=== PATIENT | female | born 1945 | race Caucasian/White ===

== ENCOUNTER 2020-12-06 09:37 | Outpatient (REF) | payer OTHER, SELFPAY ==
--- NOTE | ~2020-12-06 | MM_ITS ---
EXAMINATION: MM DIAGNOSTIC DIGITAL BREAST TOMOSYNTHESIS, BILATERAL US DIAGNOSTIC ULTRASOUND BREAST, LEFT CLINICAL INFORMATION: Due for yearly exam. Patient notes palpable area and itching posterior upper outer left breast. No known family history breast cancer. The lifetime risk of breast cancer based on the Tyrer-Cuzick Model is 2%. COMPARISON: Mammography: 07/31/2019, 06/05/2018, 05/07/2017 TECHNIQUE: Digital breast tomosynthesis is performed in both the craniocaudal and mediolateral oblique views along with computer-aided detection (CAD). Synthesized 2D images are generated from the tomosynthesis. Ultrasound left breast is targeted to the area of clinical concern 12:00 through 4:00 position. Grayscale imaging and color Doppler are performed without and with harmonics. Patient is able to point to general vicinity of concern at time of imaging although no focal palpable mass is felt by patient at time of imaging. FINDINGS: The breasts are almost entirely fatty (ACR BI-RADS breast composition Category a). Background stromal markings are stable. There is no interval mass or architectural abnormality or abnormal calcifications. No developing density. No skin thickening or coarsening of the Nestor's ligaments. The axilla and skin contours are unremarkable. Ultrasound demonstrates no cystic or solid mass, architectural abnormality, or focal duct ectasia. No skin thickening or edema tracking in soft tissue planes. Results are discussed with the patient at time of visit. MM/MM tomosynthesis diagnostic BI IMPRESSION: 1. No mammographic evidence of malignancy or inflammatory changes. 2. Unremarkable targeted left breast ultrasound.. ASSESSMENT: BI-RADS 1: Negative RECOMMENDATION: 1. Patient should be managed based on the clinical impression. Decision to proceed with biopsy should be based on clinical grounds and degree of clinical concern. 2. Otherwise, routine annual screening mammography. This patient's information was entered into a reminder system with a target due date for their next mammogram.
--- NOTE | ~2020-12-06 | US_ITS ---
Diagnostic left breast ultrasound is described in a single combined report along with the diagnostic bilateral digital breast tomosynthesis under accession # [id number].
== END 2020-12-06 09:38 | disposition home or self-care (01) ==
LOC: HO.MAMMO 09:37
PROVIDERS: PCP Internal Medicine; Visit Provider Internal Medicine
DX: N63.21 Unspecified lump in the left breast, upper outer quadrant (principal)
CPT/HCPCS: 76642; 77062; 77066

== ENCOUNTER 2021-12-11 15:58 | Outpatient (REF) | payer OTHER, SELFPAY ==
--- NOTE | ~2021-12-11 | MM_ITS ---
EXAMINATION: MM SCREENING DIGITAL BREAST TOMOSYNTHESIS, BILATERAL CLINICAL INFORMATION: Screening. Asymptomatic. The lifetime risk of breast cancer based on the Tyrer-Cuzick Model is 3.1%. COMPARISON: Mammography: December 06, 2020 and studies dating back to February 25, 2014 TECHNIQUE: Digital breast tomosynthesis is performed in both the craniocaudal and mediolateral oblique views along with computer-aided detection (CAD). Synthesized 2D images are generated from the tomosynthesis. FINDINGS: The breasts are almost entirely fatty (ACR BI-RADS breast composition Category a). There are no significant masses, abnormal calcifications, or other abnormalities. MM/MM tomosynthesis screening BI IMPRESSION: There are no significant changes from prior study. ASSESSMENT: BI-RADS 1: Negative RECOMMENDATION: Routine annual mammography screening. This patient's information was entered into a reminder system with a target due date for their next mammogram.
== END 2021-12-11 15:59 | disposition home or self-care (01) ==
LOC: HO.MAMMO 15:58
PROVIDERS: Visit Provider Internal Medicine
DX: Z12.31 Encounter for screening mammogram for malignant neoplasm of breast (principal)
CPT/HCPCS: 77063; 77067

== ENCOUNTER 2022-12-17 14:49 | Outpatient (REF) | payer OTHER, SELFPAY ==
--- NOTE | ~2022-12-17 | MM_ITS ---
EXAMINATION: MM SCREENING DIGITAL BREAST TOMOSYNTHESIS, BILATERAL CLINICAL INFORMATION: Screening. Asymptomatic. The lifetime risk of breast cancer based on the Tyrer-Cuzick Model is 3%. COMPARISON: Mammography: 12/11/2021, 12/06/2020, 07/31/2019, 06/05/2018 TECHNIQUE: Digital breast tomosynthesis is performed in both the craniocaudal and mediolateral oblique views along with computer-aided detection (CAD). Synthesized 2D images are generated from the tomosynthesis. FINDINGS: The breasts are almost entirely fatty (ACR BI-RADS breast composition Category a). Left breast has some increased attenuation retroareolar region likely related to patient positioning and incompletely compressed glandular tissue. Patient will be recalled for additional views. The remainder of the bilateral breasts show normal stromal markings and fibroglandular densities. Intramammary nodes mid upper outer right breast are stable. No developing density or architectural abnormality. No abnormal calcifications. The axilla and skin contours are unremarkable. MM/MM tomosynthesis screening BI IMPRESSION: Left: -Increased attenuation retroareolar region, likely artifact from incompletely compressed glandular tissue and positioning. Right: -No significant changes from prior exam. ASSESSMENT: BI-RADS 0: Incomplete - Need Additional Imaging Evaluation RECOMMENDATION: 1. Additional views left breast: CC nipple in profile, ML nipple in profile. 2. Targeted ultrasound if warranted after review of the additional views. 3. Radiology department staff will contact the patient for additional imaging. This patient's information was entered into a reminder system with a target due date for their next mammogram.
== END 2022-12-17 14:50 | disposition home or self-care (01) ==
LOC: HO.MAMMO 14:49
PROVIDERS: Visit Provider Internal Medicine
DX: Z12.31 Encounter for screening mammogram for malignant neoplasm of breast (principal)
CPT/HCPCS: 77063; 77067

== ENCOUNTER 2023-01-02 10:50 | Outpatient (REF) | payer MEDICARE, SELFPAY ==
--- NOTE | ~2023-01-02 | MM_ITS ---
EXAMINATION: MM DIAGNOSTIC DIGITAL BREAST TOMOSYNTHESIS, LEFT CLINICAL INFORMATION: Recall from screening for increased attenuation left retroareolar region likely artifact from incompletely compressed glandular tissue and positioning. COMPARISON: Prior mammography exams including most recent 12/17/2022. TECHNIQUE: Digital breast tomosynthesis is performed. 2D images are generated from the tomosynthesis. The following views are obtained: Left CC nipple in profile, left ML nipple in profile. FINDINGS: The breasts are almost entirely fatty (ACR BI-RADS breast composition Category a). The additional views show normal fibroglandular tissue similar to prior studies. There is no persistent increased attenuation, mass, architectural abnormality. Background stromal markings are similar to prior studies. Skin contours are unremarkable. Results are discussed with the patient at time of visit. MM/MM tomosynthesis added views L IMPRESSION: Additional views show no significant changes from prior studies. ASSESSMENT: BI-RADS 1: Negative RECOMMENDATION: Routine annual mammography screening. This patient's information was entered into a reminder system with a target due date for their next mammogram.
== END 2023-01-02 10:51 | disposition home or self-care (01) ==
LOC: HO.MAMMO 10:50
PROVIDERS: PCP Internal Medicine; Visit Provider Physician Assistant
DX: R92.8 Other abnormal and inconclusive findings on diagnostic imaging of breast (principal)
CPT/HCPCS: 77061; 77065

== ENCOUNTER 2023-12-23 14:29 | Outpatient (REF) | payer MEDICARE, MEDICAID, SELFPAY | END 2023-12-23 14:30 | disposition home or self-care (01) | LOC: HO.MAMMO 14:29 | PROVIDERS: PCP Internal Medicine; Visit Provider Internal Medicine | DX: Z12.31 Encounter for screening mammogram for malignant neoplasm of breast (principal) | CPT/HCPCS: 77063; 77067 ==

== ENCOUNTER → 2023-12-23 15:00 | Outpatient (BNV) | payer MEDICARE, MEDICAID, SELFPAY | PROVIDERS: PCP Internal Medicine; Visit Provider Radiology Diagnostic Radiology | DX: Z12.31 Encounter for screening mammogram for malignant neoplasm of breast (principal) | CPT/HCPCS: 77063; 77067 ==

== ENCOUNTER 2025-01-01 09:53 | Outpatient (REF) | payer MEDICARE, MEDICAID, SELFPAY ==
--- NOTE | ~2025-01-01 | MM_ITS ---
EXAMINATION: MM SCREENING DIGITAL BREAST TOMOSYNTHESIS, BILATERAL CLINICAL INFORMATION: Screening. Asymptomatic. COMPARISON: Mammography: Comparison is made with available priors TECHNIQUE: Digital breast mammography with tomosynthesis is performed in both the craniocaudal and mediolateral oblique views along with computer-aided detection (CAD). FINDINGS: The breasts are almost entirely fatty (ACR BI-RADS breast composition Category a). There are no significant masses, abnormal calcifications, or other abnormalities. MM/MM tomosynthesis screening BI IMPRESSION: No mammographic evidence of malignancy. ASSESSMENT: BI-RADS BI-RADS 1 - Negative RECOMMENDATION: Routine annual mammography screening. 1 year F/U This examination should not preclude the clinical evaluation of a suspicious palpable abnormality. This patient's information was entered into a reminder system with a target due date for their next mammogram. Electronically signed by: Jenn Schaeffer DO 01/16/2025 10:35 PM EDT
--- OUTSIDE RECORDS SUMMARY | 2025-01-01 10:26 | XMS_ITS | Clinical Summary ---
Author Organization [address] [facility] Address [address] [place] [address] Phone Care Team Providers Care Civil Transportation Engineer Name Role Phone Lisa Delgado MD Primary Care Provider [phone] Allergies Active Allergy Reactions Criticality Noted Date Comments Aspirin,Buffd-Calcium Carb-Mag 07/15/2013 Ibuprofen 07/15/2013 Can't have any asa or motrin like products due to bleed in the brain Nsaids (Non-Steroidal Anti-Inflammatory Drug) Other 11/18/2024 Non-steroidal anti-inflammatory agent (product) Other 08/03/2022 Medications acetaminophen (TYLENOL) 500 mg tablet Take 1 tablet by mouth every 6 hours as needed for Pain for up to 10 days. 1 Active albuterol 2.5 mg /3 mL (0.083 %) nebulizer solution Take 1 Vial by nebulization every 4 hours as needed for Wheezing. 0 Active buPROPion XL (WELLBUTRIN XL) 300 mg 24 hr tablet Take 1 tablet (300 mg total) by mouth 1 (one) time each day in the morning. 0 Active calcium carbonate-brown min D 600 mg-10 mcg (400 unit) per tablet Take 1 tablet by mouth 2 (two) times a day. 2 Active dicyclomine (BENTYL) 20 mg tablet Take 20 mg by mouth daily. 1 Active fluticasone furoate (Arnuity Ellipta) 100 mcg/actuation blister with device inhaler Inhale 1 Puff into the lungs 2 times daily. 4 Active fluticasone HFA (FLOVENT HFA) 110 mcg/actuation inhaler Inhale 1 Puff into the lungs 2 times daily. 3 Active lidocaine (LIDODERM) 5 % patch PLACE 1 PATCH TO SKIN EVERY 24 HOURS FOR 28 DAYS. APPLY FOR NO MORE THAN 12 HOURS/24 HR PERIOD. 4 Active LORazepam (ATIVAN) 0.5 mg tablet Take 0.5 mg by mouth 2 Times Daily. Active omeprazole (PriLOSEC) [address] capsule Take 1 capsule (20 mg total) by mouth 1 (one) time each day. Active traZODone (DESYREL) 100 mg tablet Take 0.5 Tablets by mouth at bedtime as needed for Sleep. 4 Active cetirizine HCl (CETIRIZINE ORAL) Take by mouth. Activ e magnesium 250 mg tablet Take by mouth. Activ e simvastatin (ZOCOR) 40 mg tablet TAKE 1 TABLET BY MOUTH EVERYDAY AT BEDTIME 90 tablet 1 5 Active montelukast (SINGULAIR) 10 mg tablet TAKE 1 TABLET BY MOUTH EVERYDAY AT BEDTIME 90 tablet 1 5 Active ibandronate (BONIVA) 150 mg tablet TAKE 1 TABLET BY MOUTH EVERY 30 DAYS. 3 tablet 1 5 Active albuterol HFA (PROAIR HFA ; PROVENTIL HFA ; VENTOLIN HFA) 90 mcg/actuation inhaler INHALE 2 PUFFS INTO THE LUNGS EVERY 4 HOURS NEEDED FOR COUGH OR WHEEZING. 8.5 each 1 5 Active gabapentin (NEURONTIN) 100 mg capsule TAKE 1 CAPSULE BY MOUTH EVERY DAY 90 capsule 1 5 Active amLODIPine (NORVASC) 2.5 mg tablet Take 1 tablet (2.5 mg total) by mouth 1 (one) time each day. 90 tablet 1 5 Active EPINEPHrine (EPIPEN) 0.3 mg/0.3 mL injection 2 Active doxycycline (VIBRAMYCIN) 100 mg capsule Take 1 capsule (100 mg total) by mouth 2 (two) times a day for 10 days. Take with at least 8 ounces (large glass) of water, do not lie down for 30 minutes after. Administer 2 hours before or after multivitamins, antacids, or other products containing polyvalent cations (i.e., calcium, iron, magnesium, selenium, zinc). 20 each 5 12/22/19 25 cephalexin (KEFLEX) 500 mg capsule Take 1 capsule (500 mg total) by mouth 4 (four) times a day for 7 days. 28 each 5 12/22/19 25 Hospital, Clinic, or Other Facility Administered Medication Ordered Dose Route Frequency Start Date End Date Status lidocaine (XYLOCAINE) 1 % injection 3 mLIndications:Chroni c right shoulder pain 3 mL inj Once PRN Procedure 12/28/2024 12/28/2024 Ended triamcinolone acetonide (KENALOG-40) 40 mg/mL injection 40 mgIndications:Chroni c right shoulder pain 40 mg IAtc Once PRN Procedure 12/28/2024 12/28/2024 Ended Active Problems Problem Noted Date Diagnosed Date Trochanteric bursitis of right hip 08/19/2024 Headache 05/29/2024 Mixed bipolar I disorder (CMS/HCC V24, CMS/HCC V 28) 05/29/2024 Chronic neck pain 05/29/2024 Assessment & Plan (12/04/2024 4:02 PM EDT): Ms. Torres describes chronic neck pain. She says it has been going on for years. She has not had any radiation down the arms recently. She notes a little bit of tenderness along the sternocleidomastoid but says that it is not bad today. He was offered a left-sided C4-5 foraminotomies in the past but that does not seem appropriate today given her minimal symptoms. She excepted a prescription for physical therapy. She is welcome to follow-up with us in the future on an as- needed basis. Assessment & Plan (05/29/2024 4:26 PM EST): I reviewed the information from the x-rays of the cervical spine and though there are diffuse degenerative changes, she may be symptomatic from facet disease/foraminal stenosis on the left. She describes achiness in the left arm but no focal weakness. She is diffusely weak presumably from pain. She also has a history of carpal tunnel syndrome which she believes is the cause of her recurrent right hand numbness but, this too, could be a mid cervical issue. I am going to send her for cervical spine MRI at [facility] to see if there is anything we can do for her. Right shoulder pain 01/11/2023 Overview (05/21/2024): Last Assessment & Plan: Ms. Torres has had chronic right shoulder pain and poor mobility for which she is seen Dr. Cavanaugh in the past. She had also seen Dr. Garcia for previous wrist fracture. Currently, she is pain diffusely around the shoulder with poor mobility. There is some tenderness along the anterior capsule. She is able to rotate to get her hand behind her right hip but she cannot raise it up to the middle of her back. Shoulder abduction is less than 90 degrees. I will refer her back to Dr. Garcia's group for reevaluation. Central stenosis of spinal canal 03/30/2022 Lumbar degenerative disc disease 03/30/2022 Lumbar radiculopathy 03/30/2022 Overview (05/21/2024): Last Assessment & Plan: Ms. Torres is here to check in with an update on how she is feeling. Basically, everything still hurts including tension on both sides of her neck, right shoulder pain from a rotator cuff tear that is being treated nonsurgically with ultrasound injections, left groin pain, right hip pain and the chronic, excruciating lower back pain. This latter is worse with standing even just to do dishes which she also feels limited if sitting for too long. She is using a lidocaine patch which does help. She has poor balance which did not improve after her remote Chiari decompression and she wonders if anything will get better. She is taking Tylenol for arthritis and ibuprofen. On exam, she seen slouched in the chair but when standing, she has a notable thoracic scoliosis and kyphosis. Strength is full, gait is slow and mildly unsteady though she leans on her cane. Unfortunately, there is really nothing more for me to offer her. She does not wish to pursue further surgery and I have not recommended anything in the lumbar spine given the location of her LP shunt. She can continue using lidocaine patches and I recommended spending time in a warm water pool. Chronic RLQ pain 09/22/2021 Cold intolerance 09/22/2021 Hyperlipidemia 01/17/2021 Vitamin B12 deficiency 11/16/2020 Compression fracture of thor acic vertebra ([facility] V24, [facility] V28) 03/04/2020 HTN (hypertension), benign 06/09/2019 Calculus of kidney 02/24/2018 Lung nodule 02/21/2015 Osteopenia 03/05/2014 Overview (05/21/2024): 02/2021 DXA t-score lumbar spine -1.6; hip -2.0 Chaudhary's esophagus 02/23/2014 Overview (05/21/2024): Dr. Kim, upper endoscopy every 2 eyars IBS (irritable bowel syndrome) 02/23/2014 Overview (05/21/2024): Sees Dr. Kim at [place] who does colonosocpy every 5 years Allergic rhinitis 07/15/2013 Asthma 07/15/2013 Bipolar depression ([facility] V24, [facility] V28) Congenital spherocytosis ([facility] V24) 4 Insomnia 07/15/2013 Encounters Date Type Department Care Team Description 12/28/2024 2:30 PM EDT Ancillary Procedure Orthopedic Surgery [facility] [address] [phone] 12/28/2024 2:00 PM EDT Office Visit Orthopedic Surgery [facility] 160 175 [facility] [address] [place] [address] Evelyn Jack MD Chronic right shoulder pain (Primary Dx) 12/14/2024 [facility]phone [facility] [address] [place] [address] Je Baltazar PA 12/09/2024 6:00 PM EDT Office Visit [facility] [address] [place] [address] Christa Brooks NP Exposure to MRSA (Primary Dx) 12/09/[address] [phone] Aliyah York [place] Test request 12/04/2024 2:00 PM EDT Office Visit [facility] [address] [phone] David Collins PA Chronic neck pain (Primary Dx) 11/23/2024 Telephone [facility] [address] [phone] Katelin Tejada [place] 11/18/2024 2:00 PM EDT Office Visit Orthopedic Surgery [place] [address] [phone] Jsoe Traylor MD Follow-up exam (Primary Dx); Acute pain of right knee; Trochanteric bursitis of right hip; Primary osteoarthritis of right knee 10/22/2024 2:30 PM EDT Office Visit [address] [phone] Nicky Soares PA Cellulitis of right foot (Primary Dx); Tinea pedis of right foot; Callus of foot; Thickened nails 10/21/[address] [phone] Aliyah York [place] Wound Infection 10/06/2024 10:04 AM EDT - 10/06/2024 11:59 PM EDT Hospital Encounter [address] [phone] Dog bite of finger, initial encounter Discharge Disposition: Home or Self Care 10/06/2024 9:30 AM EDT Office Visit [address] [phone] Nicky Soares PA Dog bite of finger, initial encounter (Primary Dx) from Last 3 Months Immunizations Name Administration Dates Next Due Influenza trivalent, 0.5mL ( Fluad) 65yo and older 05/04/2023,05/26/2022,03/16/2021,04/04,03/18/2019,03/17/2018,03/23/2015 Influenza trivalent, 0.5mL, preservative free (Fluarix; FluLaval; Fluzone) ages 6mo and older (Afluria) 3 years and older 03/08/2013 Influenza, Unspecified 03/14/2014 Pfizer Covid-19 Bivalent, Or iginal + Ba.1 (Non-US Trademark COMIRNATY Bivalent) 04/29/2022 [employer] SARS-CoV-2 COVID-19, mRNA, LNP-S, preservative free 04/06/2021 Pneumococcal conjugate 13 va lent (Prevnar 13, PCV13) 2mo and older 02/29/2016 Pneumococcal polysaccharide 23 valent (Pneumovax 23) 2yo and older 04/30/2018,07/08/2010 Td Tetanus diptheria (Tdvax) 7yo and older 02/24/2024 Tdap Tetanus diptheria acell ular pertussis (Boostrix; Adacel) 7yo and older 03/20/2017,02/23/2014 Zoster recombinant (Shingrix ) 19yo and older 03/24/2022,09/25/2021 Surgical History Surgery Date Site/Laterality Comments OTHER SURGICAL HISTORY 1988 PROCEDURE: BRAIN SURGERY USING COMPUTER; COMMENT: chiari malformation - has spinal shunt WRIST SURGERY PROCEDURE: HISTORICAL WRIST SURGERY OVARIAN CYST REMOVAL 1974 Left PROCEDURE: MA OVARIAN CYSTECTOMY UNI/BI; COMMENT: removal of ovarian tube SECTION PROCEDURE: HISTORICAL DELIVERY OTHER SURGICAL HISTORY 02/27/2019 PROCEDURE: ---- OTHER ----; COMMENT: Esophagogastroscopy with biopsy APPENDECTOMY PROCEDURE: MA APPENDECTOMY HYSTERECTOMY PROCEDURE: HISTORICAL HYSTERECTOMY TONSILLECTOMY ADENOIDECTOMY, BILATERAL MYRINGOTOMY AND TUBES PROCEDURE: MA TONSILLECTOMY & ADENOIDECTOMY <AGE 14 Medical History Medical History Date Comments Asthma 07/15/2013 DX:Asthma Bipolar depression ([facility] V24, [facility] V28) 07/15/2013 DX:Bipolar depression ([facility]) Allergic rhinitis 07/15/2013 DX:Allergic rh initis Insomnia 07/15/2013 DX:Insomnia Anxiety state DX:Anxiety state Depressive disorder DX:Depressiv e disorder Hyperlipidemia DX:Hyperlipidemi a Essential hypertension DX:Essent ial hypertension Esophageal reflux DX:Esophageal reflux Irritable bowel syndrome DX:Irri table bowel syndrome Iron deficiency anemia secon serg to inadequate dietary iron intake DX:Iron deficiency anem ia secondary to inadequate dietary iron intake Family History Medical History Relation Name Comments Alzheimer's disease Aunt Brain Aneurysm Daughter Dementia Maternal Grandfather Prostate cancer Maternal Grandfather Alzheimer's disease Mother DVT Heart attack Uncle 1 Pancreatic cancer Uncle 2 Dementia Uncle 3 Relation Name Status Comments Aunt Daughter Alive Maternal Grandfather Mother Alive Uncle 1 Uncle 2 Uncle 3 Social History Tobacco Use Types Packs/Day Years Used Date Smoking Tobacco: Former Cigarettes 1.5 25 0 07/08/1962 - 07/15/1987 Smokeless Tobacco: Never Tobacco Cessation:Counseling Given: Not Answered Alcohol Use Standard Drinks/Week Comments No 0 (1 standard drink = 0.6 oz pur e alcohol) Comments Unknown Sex and Gender Information Value Date Recorded Sex Assigned at Not on file Legal Sex Female 9:46 AM EST Gender Identity Not on file Sexual Orientation Not on file Obstetrics History Last Filed Vital Signs Vital Sign Reading Time Taken Comments Blood Pressure 134/89 12/09/2024 5:53 PM EDT Pulse 68 12/09/2024 5:53 PM EDT Temperature 36.7 C (98.1 F) 12/09/2024 5:53 PM EDT Respiratory Rate 12 10/22/2024 2:49 PM EDT Oxygen Saturation 97% 09/14/2024 2:24 PM EDT Inhaled Oxygen Concentration - - Weight 59.4 kg (131 lb) 12/28/2024 2:00 PM EDT Height 165.1 cm (5' 5 ) 12/28/2024 2:00 PM EDT Body Mass Index 21.8 12/28/2024 2:00 PM EDT Plan of Treatment Upcoming Encounters Date Type Department Care Team (Late st Contact Info) Description 01/06/2025 1:30 PM EDT Office Visit Adult Medicine [address] [phone] Lisa Delgado MD [address] [place] [phone] 01/14/2025 8:45 AM EDT Office Visit Orthopedic Surgery - [place] [address] 175 [facility] [address] [place] [phone] Navjot Osorio DPM 175 [facility] [address] [place] [address] 02/02/2025 1:00 PM EDT Office Visit Orthopedic Surgery - [place] 160 175 [facility] 160 [place] [address] Evelyn Jack MD 175 [facility] 160 [place] [address] 02/09/2025 1:15 PM EDT Office Visit Adult [address] [phone] Nicky Soares PA [address] [place] [phone] Health Maintenance Due Date Last Done Comments RSV Immunization Adult Patients (1 - 1-dose 75+ series) 2022 Falls Risk Assessment 06/16/2022 Medicare Annual Wellness Visit 06/16/2022 Social Influencers of Health Screening 06/16/2022 Osteoporosis Screening (Bone Density Screening) 03/15/2024 03/15/2023, 02/24/2021, 08/24/2019, Additional history exists COVID-19 Vaccine ( season) 2024 03/17/2024, 06/02/2023, 11/13/2021, Additional history exists Depression Screening 10/21/2024 10/22/2023 Influenza Vaccine (Season Ended) 2025 05/04/2023, 05/26/2022, 03/16/2021, Additional history exists Hypertension/CHF/CAD Annual BMP Blood Test 12/28/2025 12/28/2024, 09/03/2024, 06/20/2023 Cholesterol Screening (Lipid Panel) 12/28/2029 12/28/2024, 09/03/2024, 06/20/2023 DTaP,Tdap,and Td Vaccines (4 - Td or Tdap) 02/23/2034 02/24/2024, 03/20/2017, 02/23/2014 Hepatitis C Screening Completed 03/14/2018 Pneumococcal Vaccine: 50+ Years Completed 04/30/2018, 02/29/2016, 07/08/2010 Zoster Vaccines Completed 03/24/2022, 09/25/2021 HIB Vaccines Aged Out No longer eligi ble based on patient's age to complete this topic HPV Vaccines Aged Out No longer eligi ble based on patient's age to complete this topic Hepatitis A Vaccines Aged Out No long er eligible based on patient's age to complete this topic Hepatitis B Vaccines Aged Out No long er eligible based on patient's age to complete this topic IPV Vaccines Aged Out No longer eligi ble based on patient's age to complete this topic MMR Vaccines Aged Out No longer eligi ble based on patient's age to complete this topic Meningococcal ACWY Vaccine Aged Out N o longer eligible based on patient's age to complete this topic Meningococcal B Vaccine Aged Out No l onger eligible based on patient's age to complete this topic RSV Immunization Patients Under 20 months Aged Out No longer eligible based on patient's age to complete this topic Varicella Vaccines Aged Out No longer eligible based on patient's age to complete this topic Procedures Procedure Name Priority Date/Time Associated Diagnosis Comments US ARTHROCENTESIS ASP INJ JOINT MAJOR RIGHT Routine 12/28/2024 2:28 PM EDT Chronic right shoulder pain XR SHOULDER 2+ VIEWS RIGHT Routine 12/28/2024 2:19 PM EDT Chronic right shoulder pain MA ARTHROCENTESIS/ASPIRAT ION/INJECTION MAJOR JOINT/BURSA W U/S GUIDANCE Routine 12/28/2024 2:00 PM EDT Chronic right shoulder pain CBC WITH AUTO DIFFERENTIAL Routine 12/28/2024 1:22 PM EDT Manic disorder, recurrent episode, mild (CMS/HCC V24, CMS/HCC V28) On parts counterman drug therapy COMPREHENSIVE METABOLIC PANEL Routine 12/28/2024 1:22 PM EDT Manic disorder, recurrent episode, mild (CMS/HCC V24, CMS/HCC V28) On parts counterman drug therapy THYROID STIMULATING HORMONE Routine 12/28/2024 1:22 PM EDT Manic disorder, recurrent episode, mild (CMS/HCC V24, CMS/HCC V28) On custodial drug therapy HEMOGLOBIN A1C Routine 12/28/2024 1:22 PM EDT Manic disorder, recurrent episode, mild (CMS/HCC V24, CMS/HCC V28) On parts counterman drug therapy CBC AND DIFFERENTIAL Routine 12/28/2024 1:22 PM EDT Manic disorder, recurrent episode, mild (CMS/HCC V24, CMS/HCC V28) On custodial drug therapy LIPID PANEL WITH REFLEX TO DIRECT LDL Routine 12/28/2024 1:22 PM EDT Manic disorder, recurrent episode, mild (CMS/HCC V24, CMS/HCC V28) On parts counterman drug therapy CULTURE WOUND WITH GRAM STAIN Routine 12/09/2024 6:17 PM EDT Exposure to MRSA XR KNEE 4+ VIEWS RIGHT Routine 5 2:36 PM EDT Follow-up exam Primary osteoarthritis of right knee XR HIP 2-3 VIEWS RIGHT Routine 5 2:11 PM EDT Follow-up exam Trochanteric bursitis of right hip MA ARTHROCENTESIS/ASPIRAT ION/INJECTION MAJOR JOINT/BURSA W/O U/S GUIDANCE Routine 11/18/2024 2:00 PM EDT Acute pain of right knee Primary osteoarthritis of right knee XR FINGERS 2+ VIEWS RIGHT Routine 10/06/2024 10:18 AM EDT Dog bite of finger, initial encounter HM DEPRESSION SCREENING Routine 10/22/2023 DXA BONE DENSITY STUDY 1+ SITS AXIAL SKEL Routine 03/15/2023 3:06 PM EDT Age-related osteoporosis without current pathological fracture HEPATITIS C SCREENING Routine 03/14/2018 from Last 3 Months or Most Recently Relevant to Health Maintenance Results * US Arthrocentesis Asp Inj Joint Major Right (12/28/2024 2:28 PM EDT) Anatomical Region Laterality Modality Extremity Right Ultrasound Narrative 12/28/2024 2:50 PM EDT PROCEDURE Right glenohumeral injection for osteoarthritis. Risk including infection, post-injection steriod flare, hypopigmentation, neurovascular injury and fat atrophy, were thoroughly discussed with the patient. The patients understood the risks and gave verbal consent for the procedure. The posteriorlateral shoulder was prepped with Chloro-prep after anatomical landmarks where palpated and visualized with ultrasound. Ethyle chloride was used as to topical anesthetic. Then using a 23-gauge 3-1/2 inch needle lidocaine 2 mL was used as a local anesthetic. Kenalog 40 mg and lidocaine 3 cc were injected into the joint using sterile technique under ultrasound guidance without complications. The patient tolerated the procedure well. Aftercare was thoroughly discussed with the patient. Images were recorded and will permanently stored in patients medical record. us Evelyn Jack MD IMG US PROCEDURES Final Result * XR Shoulder 2+ Views Right (12/28/2024 2:19 PM EDT) Anatomical Region Laterality Modality Upper Extremities, Shoulder Right Comp uted Radiography 12/30/2024 4:23 PM EDT Narrative 12/30/2024 4:24 PM EDT Right shoulder, 4 views. History chronic osteoarthritis. There is no visible fractures or dislocations. There are degenerative changes in the AC joint and glenohumeral joint. There is no abnormal soft tissue calcifications. CONCLUSIONS: Degenerative changes in the AC joint and glenohumeral joint. -------- FINAL REPORT -------- Dictated By: Jennifer Santiago Dictated Date: 12/30/2024 16:23 ET Assigned Physician: Jennifer Santiago Reviewed and Electronically Signed By: Jennifer Santiago Signed Date: 12/30/2024 16:24 ET Workstation ID: [id number] Transcribed By: Self Edit Transcribed Date: 12/30/2024 16:23 ET Procedure Note Jennifer Santiago MD - 12/30/2024 Right shoulder, 4 views. History chronic osteoarthritis. There is no visible fractures or dislocations. There are degenerativechanges in the AC joint and glenohumeral joint. There is no abnormal softtissue calcifications. CONCLUSIONS: Degenerative changes in the AC joint and glenohumeraljoint. -------- FINAL REPORT -------- Dictated By: Jennifer Santiago Dictated Date: 12/30/2024 16:23 ET Assigned Physician: Jennifre Santiago Reviewed and Electronically Signed By: Jennifer Santiago Signed Date: 12/30/2024 16:24 ET Workstation ID: [id number] Transcribed By: Self Edit Transcribed Date: 12/30/2024 16:23 ET us Evelyn Jack MD IMG XR PROCEDURES Final Result * MA ARTHROCENTESIS/ASPIRATION/INJECTION MAJOR JOINT/BURSA W U/S GUIDANCE (12/28/2024 2:00 PM EDT) Narrative Evelyn Jack MD - 12/28/2024 2:00 PM EDT Evelyn Jack MD 12/28/2024 2:50 PM L Inj/Asp: R glenohumeral Indications: pain Details: 22 G needle, ultrasound-guided posterior approach Medications: 3 mL lidocaine 1 %; 40 mg triamcinolone acetonide 40 mg/mL Outcome: tolerated well, no immediate complications Informed Consent: Laterality: Right Relevant images/test results available and reviewed: yes Health status cleared: Yes Procedure/treatment, purpose, treatment alternatives, risks/potential complications and benefits explained: yes Risk/complications/benefits details: Risks include bleeding, infection, increase in pain Patient questions answered: yes Patient agrees, verbalizes understanding, and wants to proceed: yes Consent given by: Patient Informed consent discussion completed by Physician/MUNA with patient: Verbal Pre-procedure timeout performed: yes us Evelyn Jack MD IN CLINIC/BEDSIDE ORDERABLES F inal Result * Lipid panel with reflex to direct LDL (12/28/2024 1:22 PM EDT) Cholesterol 145 0 - 200 mg/dL LAB CHEMISTRY METHOD 12/28/2024 9:15 PM EDT [facility] Triglycerides 77 0 - 150 mg/dL LAB CHEMISTRY METHOD 12/28/2024 9:15 PM EDT [facility] HDL 69 >=40 mg/dL LAB CHEMISTRY METHOD 12/28/2024 9:15 PM EDT [facility] LDL Calculated 61 0 - 100 mg/dL LAB CHEMISTRY METHOD 12/28/2024 9:15 PM EDT [facility] VLDL Cholesterol Hossein 15.4 mg/dL LAB CHEMISTRY METHOD 12/28/2024 9:15 PM EDT [facility] Non HDL Chol. (LDL+VLDL) 76 <145 mg/dL LAB CHEMISTRY METHOD 12/28/2024 9:15 PM EDT [facility] Chol/HDL Ratio 2.1 0.0 - 4.4 LAB CHEMISTRY METHOD 12/28/2024 9:15 PM EDT [facility] Blood Venous blood specimen / Unknown Venipuncture / Unknown 12/28/2024 1:22 PM EDT 12/28/2024 1:22 PM EDT us Alexi Abraham MD LAB BLOOD ORDERABLES Final Resu lt [facility] [address] [place] [address], [place] [phone] * (ABNORMAL) CBC auto differential (12/28/2024 1:22 PM EDT) WBC 5.9 4.8 - 10.8 K/mcL LAB HEMETOLOGY METHOD 12/28/2024 4:54 PM EDT [facility] RBC 4.50 3.80 - 4.80 M/mcL LAB HEMETOLOGY METHOD 12/28/2024 4:54 PM EDT [facility] Hemoglobin 12.7 11.5 - 16.0 g/dL LAB HEMETOLOGY METHOD 12/28/2024 4:54 PM [facility] Hematocrit 40.8 35.0 - 47.0 % LAB HEMETOLOGY METHOD [facility]28[facility]24 [facility] MCV 91.1 79.0 - 98.0 FL LAB HEMETOLOGY METHOD 12/28/2024 4:54 PM [facility] MCH 28.3 27.0 - 32.0 pcg LAB HEMETOLOGY METHOD 12/28/2024 4:54 PM [facility] MCHC 31.1(L) 32.0 - 37.0 g/dL LAB HEMETOLOGY METHOD 12/28/2024 4:54 PM [facility] RDW 12.5 11.0 - 15.0 % LAB HEMETOLOGY METHOD 12/28/2024 4:54 PM [facility] Platelets 232 130 - 400 K/mcL LAB HEMETOLOGY METHOD 12/28/2024 4:54 PM [facility] [facility] MPV 11.1(H) 7.0 - 11.0 [place] LAB HEMETOLOGY METHOD 12/28/2024 4:54 PM [facility] NRBC 0.0 <1.0 % LAB HEMETOLOGY METHOD 12/28/2024 4:54 PM [facility] NRBC Absolute 0.00 <0.10 K/mcL LAB HEMETOLOGY METHOD 12/28/2024 4:54 PM [facility] Neutrophils Relative 60.0 % LAB HEMETOLOGY METHOD 12/28/2024 4:54 PM [facility] Lymphocytes Relative 23.9 % LAB HEMETOLOGY METHOD 12/28/2024 4:54 PM EDT [facility] Monocytes Relative 12.3 % LAB HEMETOLOGY METHOD 12/28/2024 4:54 PM EDT [facility] Eosinophils Relative 2.5 % LAB HEMETOLOGY METHOD 12/28/2024 4:54 PM EDT [facility] Basophils Relative 1.0 % LAB HEMETOLOGY METHOD 12/28/2024 4:54 PM EDT [facility] Immature Granulocytes Relative 0.3 % LAB [facility]OLOGY [facility] Neutrophils Absolute 3.55 1.50 - 7.00 K/mcL LAB HEMETOLOGY METHOD [facility] Lymphocytes Absolute 1.42 1.00 - 5.00 K/mcL LAB HEMETOLOGY METHOD 12/28/2024 4:54 PM EDT [facility] Monocytes Absolute 0.73 0.20 - 1.00 K/mcL LAB HEMETOLOGY METHOD 12/28/2024 4:54 PM T [facility] Eosinophils Absolute 0.15 0.00 - 0.50 K/mcL LAB HEMETOLOGY METHOD 12/28/2024 4:54 PM EDT [facility] Basophils Absolute 0.06 0.00 - 0.20 K/mcL LAB HEMETOLOGY METHOD 12/28/2024 4:54 PM T [facility] Immature Granulocytes Absolute 0.02 0.00 - 0.03 K/mcL LAB HEMETOLOGY METHOD 12/28/2024 4:54 PM [facility] Blood Venous blood specimen / Unknown Venipuncture / Unknown 12/28/2024 1:22 PM EDT 12/28/2024 1:22 PM EDT us Alexi Abraham MD LAB BLOOD ORDERABLES Final Resu lt [facility] [address] [place] [address], [place] [phone] * Thyroid stimulating hormone (12/28/2024 1:22 PM EDT) [facility] TSH 0.81 0.40 - 4.00 mcIU/mL LAB CHEMISTRY METHOD 12/28/2024 9:12 PM EDT [facility] Blood Venous blood specimen / Unknown Venipuncture / Unknown 12/28/2024 1:22 PM EDT 12/28/2024 1:22 PM EDT us Alexi Abraham MD LAB BLOOD ORDERABLES Final Resu lt Performing Organization Address [facility]/ZIP Co de Phone Number [facility] [address] [place] [address], [place] [phone] * Hemoglobin A1c (12/28/2024 1:22 PM EDT) [facility] Hemoglobin A1C 5.5 <6.5 % LAB CHEMISTRY METHOD 12/28/2024 9:18 PM EDT [facility] Mean Bld Glu Estim. 111 mg/dL LAB CHEMISTRY METHOD 12/28/2024 9:18 PM EDT [facility] Blood Venous blood specimen / Unknown Venipuncture / Unknown 12/28/2024 1:22 PM EDT 12/28/2024 1:22 PM EDT us Alexi Abraham MD LAB BLOOD ORDERABLES Final Resu lt Performing Organization Address City/[facility]/ZIP Co de Phone Number [facility] [address] [place] [address], [place] [phone] * Comprehensive metabolic panel (12/28/2024 1:22 PM EDT) [facility] Sodium 141 133 - 145 mmol/L LAB CHEMISTRY METHOD 12/28/2024 9:15 PM [facility] Potassium 4.2 3.5 - 5.5 mmol/L LAB CHEMISTRY METHOD 12/28/2024 9:15 PM [facility] Chloride 106 96 - 110 mmol/L LAB CHEMISTRY METHOD 12/28/2024 9:15 PM [facility] CO2 28 21 - 32 mmol/L LAB CHEMISTRY METHOD 12/28/2024 9:15 PM [facility] Anion Gap 7 3 - 11 LAB CHEMISTRY METHOD 12/28/2024 9:15 PM [facility] Glucose 74 70 - 100 mg/dL LAB CHEMISTRY METHOD 12/28/2024 9:15 PM [facility] BUN 7 5 - 25 mg/dL LAB CHEMISTRY METHOD 12/28/2024 9:15 PM [facility] Creatinine 0.58 0.50 - 1.10 mg/dL LAB CHEMISTRY METHOD 12/28/2024 9:15 PM [facility] eGFR 93 >=60 mL/min/1. 73m2 LAB CHEMISTRY METHOD 12/28/2024 9:15 PM [facility] Comment:Calculation based on the Chronic Kidney Disease Epidemiology Collaboration (CKD-EPI) equation refit without adjustment for race. BUN/Creatinine Ratio 12.1 LAB CHEMISTRY METHOD 12/28/2024 9:15 PM [facility] Calcium 8.8 8.5 - 10.5 mg/dL LAB CHEMISTRY METHOD 12/28/2024 9:15 PM [facility] AST (SGOT) 13 10 - 42 unit/L LAB CHEMISTRY METHOD 12/28/2024 9:15 PM [facility] ALT (SGPT) 16 10 - 60 unit/L LAB CHEMISTRY METHOD 12/28/2024 9:15 PM [facility] Alkaline Phosphatase 59 42 - 121 unit/L LAB CHEMISTRY METHOD 12/28/2024 9:15 PM EDT [facility] Total Protein 6.5 6.0 - 8.0 g/dL LAB CHEMISTRY METHOD 12/28/2024 9:15 PM EDT [facility] Albumin 3.8 3.2 - 5.0 g/dL LAB CHEMISTRY METHOD 12/28/2024 9:15 PM EDT [facility] Total Bilirubin 0.3 0.0 - 1.4 mg/dL LAB CHEMISTRY METHOD 12/28/2024 9:15 PM EDT [facility] Blood Venous blood specimen / Unknown Venipuncture / Unknown 12/28/2024 1:22 PM EDT 12/28/2024 1:22 PM EDT us Alexi Abraham MD LAB BLOOD ORDERABLES Final Resu lt [facility] [address] [place] [address], [place] [phone] * (ABNORMAL) Culture wound with gram stain (12/09/2024 6:17 PM EDT) Culture, Wound Streptococcus pyogenes (Group A)(A) 12/12/2024 10:29 AM EDT [facility] Comment: Susceptibility testing is not routinely performed for Beta Streptococcus isolates since these organisms are predictably sensitive to Penicillin. If the Patient is not responding, is allergic to Penicillin, or further therapeutic information is requir ed, please consult an Infectious Disease Specialist. The organism value for this result has been updated. These results have been appended to the previously preliminary verified report. Gram Stain Result No polymorphonuclear leukocytes, No epithelial cells, and No organisms noted 12/12/2024 10:29 AM EDT [facility] Swab Structure of left upper limb / Unknown Non-blood Collection / Unknown 12/09/2024 6:17 PM EDT 12/09/2024 6:17 PM EDT Christa Brooks [employer] LAB MICROBIOLOGY - GENERAL ORD ERABLES Final Result [facility] [address] [place] [address], [place] [phone] * XR Knee 4+ Views Right (11/18/2024 2:36 PM EDT) Anatomical Region Laterality Modality Lower Extremities, Knee Right Computed Radiography Narrative 11/27/2024 12:04 PM EDT 4 views weightbearing of the right knee obtained today including AP, Campos, lateral, sunrise were reviewed. These show possible mild degenerative changes involving the medial and lateral compartment and including subchondral sclerosis and small marginal osteophytes. No significant degenerative change involving patellofemoral compartment. Minimal if any effusion. Neutral alignment. AP and Campos view of the left knee also show question mild degenerative change involving medial and lateral compartment. Neutral alignment. Generalized osteopenia. us Jose Traylor MD IMG XR PROCEDURES Fin al Result * XR Hip 2-3 Views Right (11/18/2024 2:11 PM EDT) Anatomical Region Laterality Modality Lower Extremities, Hip Right Computed Radiography Narrative 11/27/2024 12:04 PM EDT 3 views of the right hip obtained today including AP pelvis, AP and crosstable lateral hip were reviewed. These show no significant changes when compared to prior x-rays obtained 11/10 - . No significant degenerative changes involving either hip. Right hip DHS with implants that appear well-fixed and well-positioned without evidence of osteonecrosis. Prominent superior cable. Unchanged posttraumatic deformity involving the greater trochanter. Unchanged coil within the pelvis. Generalized osteopenia. us Jose Traylor MD IMG XR PROCEDURES Fin al Result * MA ARTHROCENTESIS/ASPIRATION/INJECTION MAJOR JOINT/BURSA W/O U/S GUIDANCE (11/18/2024 2:00 PM EDT) Narrative Jose Traylor MD - 11/18/2024 2:00 PM EDT Jose Traylor MD 11/18/2024 4:59 PM L Inj/Asp: R knee Indications: pain Details: 22 G needle, anterolateral approach Medications: 2 mL lidocaine 1 %; 40 mg triamcinolone acetonide 40 mg/mL Outcome: tolerated well, no immediate complications Procedure: After discussion of risks and benefits, informed consent was verbally obtained for RIGHT knee corticosteroid injection. The lateral arthroscopic soft spot was identified and marked. This was sterilized with chlorhexidine and alcohol. I then injected 2ml of 1% plain Lidocaine, 2ml 0.25% plain bupivacaine, and 40 mg of Kenalog intra-articularly without resistance. Hemostasis was achieved and a sterile Band-Aid was applied. The patient tolerated the procedure well. Postinjection risks and instructions were reviewed including activity modification, cold therapy, potential NSAIDs use, effects on blood sugar levels, and monitoring for signs of complications. Informed Consent: Laterality: Right Relevant images/test results available and reviewed: yes Health status cleared: Yes Procedure/treatment, purpose, treatment alternatives, risks/potential complications and benefits explained: yes Patient questions answered: yes Patient agrees, verbalizes understanding, and wants to proceed: yes Consent given by: Patient Informed consent discussion completed by Physician/MUNA with patient: Verbal Pre-procedure timeout performed: yes us Jose Traylor MD IN CLINIC/BEDSIDE ORD ERABLES Final Result * XR Fingers 2+ Views Right (10/06/2024 10:18 AM EDT) Anatomical Region Laterality Modality Upper Extremities, Fingers Right Radio graphic Imaging 10/06/2024 1:02 PM EDT Impressions 10/06/2024 1:04 PM EDT No radiopaque foreign body. -------- FINAL REPORT -------- Dictated By: Gallo Webber Dictated Date: 10/06/2024 13:02 ET Assigned Physician: Gallo Webber Reviewed and Electronically Signed By: Gallo Webber Signed Date: 10/06/2024 13:04 ET Workstation ID: [id number] Transcribed By: Self Edit Transcribed Date: 10/06/2024 13:02 ET Narrative 10/06/2024 1:04 PM EDT XR FINGERS 2+ VIEWS RIGHT Reason: dog bite, r/o foreign body Comparison: None FINDINGS: No acute fracture. Normal alignment. Narrowing of multiple joint spaces. No radiopaque foreign body. Procedure Note Gallo Webber MD - 10/06/2024 XR FINGERS 2+ VIEWS RIGHT Reason: dog bite, r/o foreign body Comparison: None FINDINGS: No acute fracture. Normal alignment. Narrowing of multiple joint spaces.No radiopaque foreign body. IMPRESSION: No radiopaque foreign body. -------- FINAL REPORT -------- Dictated By: Gallo Webber Dictated Date: 10/06/2024 13:02 ET Assigned Physician: Gallo Webber Reviewed and Electronically Signed By: Gallo Webber Signed Date: 10/06/2024 13:04 ET Workstation ID: [id number] Transcribed By: Self Edit Transcribed Date: 10/06/2024 13:02 ET Nicky SANDERS IMG XR PROCEDURES Final Result * Depression Screening (10/22/2023) Depression Screening abstracted Historical Provider HEALTH MAINTENANCE Final Result * DXA BONE DENSITY STUDY 1+ SITS AXIAL SKEL (03/15/2023 3:06 PM EDT) Anatomical Region Laterality Modality Bone Densitometr y 03/07/2022 1:13 PM EDT Narrative 03/15/2023 4:05 PM EDT BONE DENSITY Lumbar Spine T-score is -1.6 (SD relative to 20-29 y/o adult) Z-score is +0.8 (SD relative to age matched peers) This is consistent with osteopenia by criteria defined by the WHO. Left Hip T-score is -2.3 Z-score is -0.5 This is consistent with osteopenia by criteria defined by the WHO. Comparison exam(s): significant decrease in bone density of hip when compared to most recent bone density examination Confidence level is +/-95%. Impression: Based on the World Health Organization criteria, Reggie Torres should be classified as having osteopenia. The [facility] Department of Internal Medicine recommends using National Osteoporosis Foundation (NOF) guidelines in treatment decisions related to osteoporosis. NOF guidelines suggest considering treatment for postmenopausal women and men aged 50 or older presenting with the following: History of hip or vertebral fracture. T-score less than or equal to -2.5 (DXA) at the femoral neck, total hip, or spine, after appropriate evaluation to exclude secondary causes. Low bone mass (T-score between -1.0 and -2.5 at the femoral neck or spine) AND a 10-year probability of a hip fracture greater than or equal to 3% OR a 10-year probability of a major osteoporosis-related fracture greater than or equal to 20% based on the [place]-adapted WHO algorithm Please note that all treatment decisions require clinical judgment and consideration of individual patient factors, including patient preferences, co-morbidities, previous drug use, risk factors not captured in the FRAX model (e.g., frailty, falls, vitamin D deficiency, increased bone turnover, interval significant decline in bone density) and possible under- or over-estimation of fracture risk by FRAX. Procedure Note Jennifer Santiago MD - 08/12/2023 BONE DENSITY Lumbar Spine T-score is -1.6 (SD relative to 20-29 y/o adult) Z-score is +0.8 (SD relative to age matched peers) This is consistent with osteopenia by criteria defined by the WHO. Left Hip T-score is -2.3 Z-score is -0.5 This is consistent with osteopenia by criteria defined by the WHO. Comparison exam(s): significant decrease in bone density of hip whencompared to most recent bone density examination Confidence level is +/-95%. Impression: Based on the World Health Organization criteria, Reggie Torres shouldbe classified as having osteopenia. The [facility] Department of Internal Medicine recommendsusing National Osteoporosis Foundation (NOF) guidelines in treatmentdecisions related to osteoporosis. NOF guidelines suggest consideringtreatment for postmenopausal women and men aged 50 or older presentingwith the following: History of hip or vertebral fracture. T-score less than or equal to -2.5 (DXA) at the femoral neck, total hip,or spine, after appropriate evaluation to exclude secondary causes. Low bone mass (T-score between -1.0 and -2.5 at the femoral neck or spine)AND a 10-year probability of a hip fracture greater than or equal to 3% ORa 10-year probability of a major osteoporosis-related fracture greaterthan or equal to 20% based on the [place]-adapted WHO algorithm Please note that all treatment decisions require clinical judgment andconsideration of individual patient factors, including patientpreferences, co-morbidities, previous drug use, risk factors not capturedin the FRAX model (e.g., frailty, falls, vitamin D deficiency, increasedbone turnover, interval significant decline in bone density) and possibleunder- or over-estimation of fracture risk by FRAX. Lisa Delgado MD IM DXA PROCEDURES Final Result * Hepatitis C Screening (03/14/2018) [facility] Hepatitis C Screening abstracted Historical Provider HEALTH MAINTENANCE Final Result from Last 3 Months or Most Recently Relevant to Health Maintenance Insurance [employer] MEDICARE ADVANTAGE [place]ICA[place] - [place] Advance Directives Documents on File Type Date Recorded Patient Roll On Man Expl anation Health Care Decision (hx) 05/21/2019 AD AVILA DIRECTIVE Health Care Decision (hx) 05/21/2019 AD AVILA DIRECTIVE Health Care Decision (hx) 05/21/2019 AD AVILA DIRECTIVE Health Care Decision (hx) 05/21/2019 AD AVILA DIRECTIVE Health Care Decision (hx) 05/21/2019 AD AVILA DIRECTIVE Health Care Decision (hx) 05/21/2019 AD AVILA DIRECTIVE Health Care Decision (hx) 05/21/2019 AD AVILA DIRECTIVE Health Care Decision (hx) 05/21/2019 AD AVILA DIRECTIVE Health Care Decision (hx) 05/21/2019 AD AVILA DIRECTIVE Health Care Decision (hx) 05/21/2019 AD AVILA DIRECTIVE Health Care Decision (hx) 05/21/2019 AD AVILA DIRECTIVE Health Care Decision (hx) 05/21/2019 AD AVILA DIRECTIVE Care Teams Civil Transportation Engineer Relationship Specialty Start Date End Date Lisa Delgado MD [address] [place] [id number] PCP - General Internal Medicine 05/26/24
== END 2025-01-01 09:54 | disposition home or self-care (01) ==
LOC: HO.MAMMO 09:53
PROVIDERS: PCP Internal Medicine; Visit Provider Internal Medicine
DX: Z12.31 Encounter for screening mammogram for malignant neoplasm of breast (principal)
CPT/HCPCS: 77063; 77067

== ENCOUNTER → 2025-01-01 10:00 | Outpatient (BNV) | payer MEDICARE, MEDICAID, SELFPAY | PROVIDERS: PCP Internal Medicine; Visit Provider Internal Medicine | DX: Z12.31 Encounter for screening mammogram for malignant neoplasm of breast (principal) | CPT/HCPCS: 77063; 77067 ==